=== PATIENT | female | born 1990 | race Caucasian/White ===

== ENCOUNTER 2020-12-24 15:32 | Outpatient (CLI) | payer BC ==
[2016-04-20 06:10] VITALS: BMI 38.3
[~2020-12-24 15:32] MED LIST: IBUPROFEN800 MG PO; PERCOCET 5-3251 TAB PO; PRENATAL COMPLE1 TAB PO
== END 2020-12-24 17:40 | disposition home or self-care (01) ==
LOC: D.LDO 15:32
PROVIDERS: ATTEND Student in an Organized Health Care Education/Training Program
DX: O35.9XX0 Maternal care for (suspected) fetal abnormality and damage, unspecified, not applicable or unspecified (principal)

== ENCOUNTER 2020-12-28 08:55 | Inpatient (IN) | payer BC ==
[~2020-12-28] VITALS: Ht 157.5 cm; Wt 101.2 kg
[2021-01-08] VITALS (8 sets, daily range): BP systolic 100–130; BP diastolic 56–80; Ht 157.5 cm; Wt 101.2 kg
[2021-01-08 08:26] LABS: HEMATOCRIT 34.3 % (36.0-48.0); HEMOGLOBIN 10.8 g/dL (12-16); MCH 25.4 pg (26.0-34.0); MCHC 31.5 g/dL (31.0-37.0); MCV 80.7 fL (80.0-100.0); MEAN PLATELET VOLUME 10.6 fL (7.4-10.4); RBC 4.25 10x6/uL (4.00-5.40); RDW 14.3 % (11.5-14.5); WBC 7.5 10x3/uL (4.8-10.8)
--- NOTE | 2021-01-08 12:45 | NUR ---
TO PT'S ROOM, PT IS SITTING UP WITH HOB AT 45 DEGREES, PT STATES THE MORPHINE HAS HELPED "JUST A LITTLE BIT". SPOKE WITH PT REGARDING PAIN MEDICATION/TORADOL FOR PAIN CONTROL. PT AGREES, CONTINUES TO USE FIRE SPRINKLER INSPECTOR MORPHINE. GÓMEZ CATH CONTINUES TO DRAIN YELLOW URINE. SRUP X 2, CALL LIGHT AND PHONE WITHIN REACH. PT DENIES ALL OTHER NEEDS AT THIS TIME.
--- NOTE | 2021-01-08 14:30 | NUR ---
PAIN REASSESSED SHE RATES AT 5/10 AT THIS TIME, WILL CALL OUT WHEN SHE IS FEELING BETTER SO THAT UNDERPADS COULD BE CHANGED. FUNDUS FIRM AT U/1 WITH LIGHT BLEEDING NOTED. CALL LIGHT IN REACH.
--- NOTE | 2021-01-08 14:55 | NUR ---
FUNDUS FIRM AT U/1 WITH LIGHT BLEEDING WITHOUT CLOTS, NATALIE PAD CHANGED. RATES PAIN AT 3/10 AT THIS TIME. SHE IS ABLE TO SIT HERSELF UP IN BED AND IS TEXTING ON HER PHONE, NURSERY NOTIFIED ABOUT BRINGING TO ROOM. GÓMEZ CATH AT BEDSIDE DRAIN WITH 50ML NOTED TO UROMETER. CALL LIGHT IN REACH AND SPOUSE AT BEDSIDE.
--- NOTE | 2021-01-08 18:15 | NUR ---
FUNDUS FIRM, U/2, SMALL RUBRA LOCHIA, NO CLOTS EXPELLED. PERICARE GIVEN WITH WARM WET WASHCLOTHS, PERITOWELS/CHUX AND PERIPADS CHANGED. CLEAN GOWN ON, AND NEW ICE PACK PLACED OVER GOWN TO INCISION. SCD'S ON AND PLUGGED IN, NOW COMPRESSING INTERMITTENTLY. PT DENIES N/V, SOB, DIZZINESS, CHEST PAIN OR DIFFICULTY BREATHING. PT HAS EATEN CHICK BRADEN A BROUGHT IN BY HER . PT DENIES ALL OTHER NEEDS. SRUP X2, CALL LIGHT AND PHONE WITHIN REACH.
--- NOTE | 2021-01-08 19:00 | NUR ---
PT REPORT GIVEN BY ZURI MURRAY
--- NOTE | 2021-01-08 19:30 | NUR ---
IV TORADOL GIVEN AND A NEW BAG OF PITOCIN HUNG. PT ASKING FOR WATER. A NEW GLASS WAS GIVEN TO HER. AT BEDSIDE. IS SOMEWHAT AFRAID OF [place]. NO C/O
--- NOTE | 2021-01-08 20:00 | NUR ---
ASSESSMENT COMPLETED. IV IN RIGHT WRIST WITH PITOCIN HANGING. PT DOES NOT HAVE MUCH BLEEDING BUT JUST A TRICKLE. FUNDUS IS FIRM, BLEEDING SMALL MOSTLY SEROUS. SHE HAS A GÓMEZ CATHETER IN PLACE AND PT HAS AN ICE PACK. PT IS NOW ON A REGULAR DIET. PT DELIVERED A BABY BOY VIA C SECTION AT 1001 01/08/21
--- NOTE | 2021-01-08 21:00 | NUR ---
PT REQUEST MORE WATER AND MORE WAS GIVEN TO HER.
--- NOTE | 2021-01-08 22:30 | NUR ---
NEW TURNING SANDER OPERATOR MORPHINE SYRINGE PUT IN PT TURNING SANDER OPERATOR MACHINE.
[2021-01-09] VITALS: BP 125/68
--- NOTE | 2021-01-09 | NUR ---
RESTING QUIETLY WITHOUT C/O
[2021-01-09 03:42] VITALS: BP 126/68
--- NOTE | 2021-01-09 03:43 | NUR ---
PT ICEPACK LEAKED ON PT GOWN. GOWN WAS CHANGED AND ANOTHER BLANKER WAS TAKEN TO PT. PT IS GOING TO TRY TO SLEEP AGAIN SINCE BABY IS IN THE NURSERY NOW
--- NOTE | 2021-01-09 05:45 | NUR ---
GÓMEZ CATHETER REMOVED. TOTAL URINE OUTPUT IS 3000CC SHE WAS ASKED TO CALL NURSE WHEN SHE NEEDED TO VOID.
[2021-01-09 06:11] LABS: RAPID PLASMA REAGIN Non Reactive (Non Reactive)
--- NOTE | 2021-01-09 06:30 | NUR ---
PT IS DOING WELL AT THIS TIME. TORADOL GIVEN IV
[2021-01-09 07:48] LABS: BASOPHILS 0 % (0-2); EOSINOPHILS 0.8 % (0-7); HEMATOCRIT 32.1 % (36.0-48.0); HEMOGLOBIN 10.1 g/dL (12-16); IMMATURE GRANULOCYTES 0.1 % (0-5); LYMPHOCYTE ABS# 0.33 10x3/uL (1.18-3.74); LYMPHOCYTES 3.7 % (15-50); MCH 25.1 pg (26.0-34.0); MCHC 31.5 g/dL (31.0-37.0); MCV 79.9 fL (80.0-100.0); MEAN PLATELET VOLUME 10.3 fL (7.4-10.4); MONOCYTES 5.3 % (2-11); NEUTROPHIL ABS# 7.96 10x3/uL (1.56-6.13); NEUTROPHILS 90.1 % (40-80); PLATELET COUNT 185 10x3/uL (130-400); RBC 4.02 10x6/uL (4.00-5.40); RDW 14.3 % (11.5-14.5); WBC 8.8 10x3/uL (4.8-10.8)
[2021-01-09 10:48] VITALS: BP 141/76
--- NOTE | 2021-01-09 11:00 | NUR ---
REPORT RECIEVE AT 0700 01/09/21 FROM Carline DIXON RN. RN HAD D/C GÓMEZ AT 0545, BUT CONTINUOUS LOCK TENDER CHIEF OPERATOR STILL IN USE. IN O800 HOUR Lion ALBRECHT RN D/C LOCK TENDER CHIEF OPERATOR WITH ZURI BHATT AND WASTED 1 ML THAT WAS LEFT IN PYXIS SYSTEM WITH RN WITNESS. P.O. PAIN AND GAS MEDICATION PROVIED DURING THIS TIME. VITAL SIGNS OBTAINED, PT POSITIONED AND ASSISTED TO STANDING POSITON. PT THEN AMBULATED WITH RN ASSISTANCE TO SHOWER, SHOWER CHAIR IN USE. ABD DRESSING REMOVED. PT SHOWERED, LINENS CHANGED AND THEN PT ASSISTED OUT OF SHOWER. ABDOMINAL BINDER PLACED ON PT AND PT AMBULATING IN HALLWAY WITH STAS TARUN, SPOUSE. NO FURTHER NEEDS OR CONCERNS. IV REMAINS IN RIGHT HAND SALINE LOCKED AND REINFORCED WITH TAPE. 1000 AT BEDSIDE, MOTHER DENIES NEEDS, PAIN OR CONCERN 1100 IN MOTHERS ARMS, MOTHER DENIES NEEDS, PAIN OR CONCERNS
[2021-01-09 13:04] VITALS: BP 136/75
--- NOTE | 2021-01-09 14:50 | NUR ---
01/09/21 1400 pt resting at this time. Spouse at bedside. Eating outside food at this time. Verbalizes improvement of pain. States pain is now 2/10
--- NOTE | 2021-01-09 15:38 | NUR ---
01/09/21 1538 room check. Pain assessed, pt states that pain is 5/10 when she moves. 400 clear yellow urine emptied. Ibuprfen and mylicon administered at this time to assist in relieving post op discomfort. S/o at bedside, lying on back in crib next to mother. No further needs or concerns notied
--- NOTE | 2021-01-09 16:31 | NUR ---
ROOM CHECK COMPLETED AT THIS TIME. WATER PITCHER REFILLED. 600 CLEAR YELLOW URINE EMPTIED, COLLECTION COMPLETED. MOTHER AND S/O DENY FURTHER NEEDS AND CONCERNS. MOTHER BREAST FEEDING AND VERBALIZES IMPROVEMENT OF PAIN.
[2021-01-09 17:36] VITALS: BP 123/73
--- NOTE | 2021-01-09 19:00 | NUR ---
REPORT GIVEN BY ZURI BALDWIN
[2021-01-09 19:30] VITALS: BP 116/66
--- NOTE | 2021-01-09 20:08 | NUR ---
MEDICATION GIVEN. PT ASKED FOR MORE WATER AND IT WAS DELIVERED.
--- NOTE | 2021-01-09 22:06 | NUR ---
ROUNDS MADE. PT HAS NO C/O BUT WAS TAKEN MORE WATER.
[2021-01-10 00:30] VITALS: BP 128/72
--- NOTE | 2021-01-10 00:30 | NUR ---
VS TAKEN. PT REQUESTING PAIN MEDS. SHE IS RATING PAIN AT A 7. SHE ALSO REQUESTED SOME GAS MEDICINE. I EXPLAINED THAT THIS WAS A PRN MED AND SHE WOULD NEED TO ASK FOR IT. THESE WERE TAKEN TO THE PT.
--- NOTE | 2021-01-10 02:00 | NUR ---
PT IS SLEEPING. NO C/O BABY IS IN THE NURSERY
--- NOTE | 2021-01-10 04:00 | NUR ---
PT IS SLEEPING SOUNDLY. BABY IS IN THE NURSERY. DID NOT WAKE UP PT FOR VS SINCE THEY HAVE CONSISTENTLY BEEN STABLE.
--- NOTE | 2021-01-10 08:15 | NUR ---
BONDING WITH INFANT. C/O ABD AND INCISIONAL DISCOMFORT. MEDICATED PER EMAR. ICE WATER PROVIDED. SPOUSE RESTING ON COUCH AT BEDSIDE. BED IN LOW POSITION WITH SRUP X2. CALL LIGHT AND PHONE WITHIN REACH.
[2021-01-10 08:22] VITALS: BP 127/68
--- NOTE | 2021-01-10 08:22 | NUR ---
SHIFT ASSESSMENT COMPLETED PER FLOWSHEET. VSS. FUNDUS FIRM, MIDLINE AND U2 WITH SCANT RUBRA LOCHIA, NO CLOTS NOTED. REPORTS THAT SHE IS PASSING FLATUS AND VOIDING WITHOUT DIFFICULTY. LOWER TRANSVERSE ABD INCISION, WELL APPROXIMATE, GLUE INTACT. NO DRAINAGE OR S/S OF INFECTION NOTED. INSTRUCTED ON INCISIONAL CARE, VERBALIZES UNDERSTANDING AND DENIES QUESTIONS. SPOUSE AT BEDSIDE, ATTENTIVE AND SUPPORTIVE TO PT AND NEEDS. SCD'S REFUSED, EDUCATION PROVIDED. PT REPORTS THAT SHE HAS BEEN USING INCENTIVE SPIROMETER IN BETWEEN CARING FOR .
--- NOTE | 2021-01-10 08:56 | NUR ---
PAIN REASSESSMENT COMPLETED, 11/25. BONDING WITH INFANT IN ARMS. DENIES NEEDS.
--- NOTE | 2021-01-10 09:47 | NUR ---
DENIES NEEDS. INFANT SKIN TO SKIN. SPOUSE AT BEDSIDE, SUPPORTIVE AND ATTENTIVE TO PT AND INFANT NEEDS. BED IN LOW POSITION WITH SRUP X2. CALL LIGHT AND PHONE WITHIN REACH.
--- NOTE | 2021-01-10 10:16 | NUR ---
ASSISTED WITH ABD BINDER PLACEMENT. ICE WATER PROVIDED. DENIES ADDITIONAL NEEDS. SPOUSE REMAINS AT BEDSIDE, SUPPORTIVE AND ATTENTIVE TO AND PT NEEDS.
[2021-01-10] MEDS ORDERED: PERCOCET 5-3251 TAB PO (11:45)
[2021-01-10] MEDS ORDERED: IBUPROFEN600 MG PO (11:45)
--- NOTE | 2021-01-10 13:04 | NUR ---
COMPLETED. OFF UNIT VIA W/C WITH EHSAN AND INFANT IN [facility]. DENIES NEEDS.
== END 2021-01-10 13:04 | disposition home or self-care (01) | DRG 785 ==
LOC: D.LD 01-08 06:58 → D.SDCHOLD 01-08 09:00 → D.LD 01-10 13:04
PROVIDERS: ADMIT Student in an Organized Health Care Education/Training Program; ATTEND Student in an Organized Health Care Education/Training Program
PROC: 10D00Z1 Extraction of Products of Conception, Low, Open Approach (ICD-10-PCS; principal; 2021-01-08 09:00)
PROC: 0UB70ZZ Excision of Bilateral Fallopian Tubes, Open Approach (ICD-10-PCS; 2021-01-08 09:00)
DX: O34.219 Maternal care for unspecified type scar from previous cesarean delivery (principal); Z3A.39 39 weeks gestation of pregnancy; Z37.0 Single live birth; Z30.2 Encounter for sterilization